=== PATIENT | female | born 1955 | race Caucasian/White ===

== ENCOUNTER 2017-12-05 11:03 | Observation (INO) | payer OTHER, SELFPAY ==
[2017-12-05 12:01] LABS: #Eosinphils 0.1 thou/uL (0.0-0.7); #Lymphocytes 2.1 thou/uL (1.20-3.40); #Monocytes 0.3 thou/uL (0.11-0.59); #Neutrophils 6.2 thou/uL (1.40-6.50); %Basophils 0.6 % (0.0-1.0); %Eosinophils 1.2 % (0.0-10.0); %Monocytes 3.9 % (0.0-10.0); %Neutrophils 70.4 % (42.0-75.0); Hemoglobin 14.6 g/dL (12.0-16.0); Mean Corpuscular HGB CONC 33.3 g/dL (32.0-36.0); Mean Corpuscular Hemoglobin 32.5 pg (27.0-31.0); Mean Corpuscular Volume 97.5 fL (78.0-98.0); Mean Platelet Volume 6.9 fL (7.4-10.4); Platelet Count 314 thou/uL (130-400); RBC Distribution Width 11.1 % (11.5-14.5); Red Blood Cell (RBC) Count 4.51 mill/uL (4.20-5.40); White Blood Cell (WBC) Count 8.7 thou/uL (4.8-10.8)
--- NOTE | 2017-12-05 12:18 | RAD ---
CHEST 1 VIEW: HISTORY: Chest pain. COMPARISON: None. FINDINGS: Lungs are slightly hyperinflated. No focal airspace consolidation, pneumothorax, or effusion. No ac [place] osseous abnormality. IMPRESSION: No acute intrathoracic abnormality. Mild obstructive pulmonary disease. POS: [facility]
[2017-12-05 12:27] LABS: ALT (SGPT) 11 U/L (8-55); AST (SGOT) 14 U/L (5-34); Albumin 4.7 g/dL (3.4-4.8); Alkaline Phosphatase 87 U/L (40-150); Anion Gap 13 mmol/L (10-20); BUN (Urea Nitrogen) 18 mg/dL (9.8-20.1); Bilirubin, Total 0.5 mg/dL (0.2-1.2); CK (CPK) 178 U/L (29-168); Calc. Creatinine Clearance 0 mL/min (70-130); Calcium 9.9 mg/dL (7.8-10.44); Carbon Dioxide 22 mmol/L (23-31); Chloride 108 mmol/L (98-107); Estimated GFR-MDRD 69; Globulin 3.5 g/dL (2.4-3.5); Glucose 103 mg/dL (80-115); Lipase 38 U/L (8-78); Protein, Total 8.2 g/dL (6.0-8.3); Sodium 139 mmol/L (136-145); Troponin I Less than 0.010 ng/mL (< 0.028)
--- NOTE | 2017-12-05 14:18 | PDOC.FPRHP ---
- History of Present Illness Chief Complaint: Upper chest tingling History of Present Illness: 62 yo F with PMH of HTN presents for tingling upper chest parasthesia for the past three weeks. Patient quit smoking cigars 4 weeks ago. She states the sensation is tingling or numbness across her collarbones and lower neck, with associate tingling and numbness bilaterally from mid-forearm down distally to her hands. Sensation lasts less than five minutes, usually occurs the in the morning. First episode happened while she was sleeping. It has been increasing in frequency, happening twice the first week, 4x and more "intense" the second week, and daily this week. She was worried today because it happened three times in a row. She has taken her blood pressure after the episodes and recorded a systolic pressure of 190, then 160, then 130. She is tired after the episodes. Associated with increased cough, denies SOB, diaphoresis, no nausea/ vomiting, no fever or chills, or night sweats. She has been more anxious lately worried about "" and "getting old." She reports she rarely has hot flashes but has had 3 hotflashes this week. She has >60 year pack year history of cigarettes, then smoked 5 cigars/day for 20 years. Family history of rectal, breast, mastoid, and lymphatic cancer in her mother (who at age 65). Father in 80s of CHF. In ED, her BP was 200/130, recheck after 10 minutes of rest was 145/87. CXR was normal. She received aspirin. - Allergies/Adverse Reactions Allergies Allergy/AdvReac Type Severity Reaction Status Date / Time pseudoephedrine Allergy Mild Hives Verified 12/05/17 15:18 - Home Medications Medication Instructions Recorded Confirmed Type Aspirin [Aspir-Low] 81 mg PO DAILY 12/05/17 12/05/17 History Lisinopril 20 mg PO BID 12/05/17 12/05/17 History - History PMHx: HTN PSHx: hysterectomy, pyloric stenosis as an infant FHx: Cancer =Mother: rectal cancer, breast cancer, "mastoid" cancer, of lymphatic cancer at age 65. Father- unknown cancer in 80s Cardiac: Father CHF, half brother with heart transplant Social: cigarettes 2 packs for 30 yrs, then cigars for 5 years, then pipe for 5 years, then 5 cigars/day for 15 years. - Review of Systems General: reports: fatigue. denies: fever/chills, weight/appetite/sleep changes , night sweats Eyes: denies: eye pain, vision changes ENT: denies: nasal congestion, rhinorrhea Respiratory: reports: cough. denies: congestion, shortness of breath, exercise intolerance Cardiovascular: reports: other (upper chest pain/parasthesia described as tingling/numbness). denies: palpitation Gastrointestinal: denies: nausea, vomiting, diarrhea, constipation, abdominal pain, GI bleeding Genitourinary: reports: polyuria (has been occurring for many years). denies: dysuria Skin: denies: rashes, itching Musculoskeletal: denies: stiffness, swelling Neurological: reports: numbness. denies: syncope, seizure, weakness Psychological: reports: anxiety. denies: depression - Vital signs BP:169/70, P 76, R 16 ; T97.9 ; O2 99% on RA Wt 66 kg - Physical Exam Constitutional: NAD, awake, alert and oriented, well developed HEENT: normocephalic and atraumatic, PERRLA, conjunctiva clear, grossly normal hearing, MMM Neck: supple, other (+LAD) Heart: RRR, normal S1/S2, no murmurs/rubs/gallops, pulses present, no edema Lungs: CTAB, no respiratory distress, good air movement, other (expiratory wheezing bilaterally in base of lungs) Abdomen: soft, non-tender, bowel sounds present, no masses/distention Musculoskeletal: normal structure, normal tone, ROM grossly normal Neurological: CN II-XII intact, normal sensation, DTRs 2+ Heme/Lymphatic: no purpura Psychiatric: normal mood and affect, good judgment and insight, intact recent and remote memory FMR H&P: Results - Labs Result Diagrams: 12/05/17 11:54 12/05/17 11:54 Lab results: WBC 8.7 thou/uL (4.8-10.8) 12/05/17 11:54 Hgb 14.6 g/dL (12.0-16.0) 12/05/17 11:54 Hct 43.9 % (36.0-47.0) 12/05/17 11:54 MCV 97.5 fL (78.0-98.0) 12/05/17 11:54 Plt Count 314 thou/uL (130-400) 12/05/17 11:54 Neutrophils % 70.4 % (42.0-75.0) 12/05/17 11:54 Sodium 139 mmol/L (136-145) 12/05/17 11:54 Potassium 4.0 mmol/L (3.5-5.1) 12/05/17 11:54 Chloride 108 mmol/L (98-107) H 12/05/17 11:54 Carbon Dioxide 22 mmol/L (23-31) L 12/05/17 11:54 BUN 18 mg/dL (9.8-20.1) 12/05/17 11:54 Creatinine 0.83 mg/dL (0.6-1.1) 12/05/17 11:54 Glucose 103 mg/dL (80-115) 12/05/17 11:54 Calcium 9.9 mg/dL (7.8-10.44) 12/05/17 11:54 Total Bilirubin 0.5 mg/dL (0.2-1.2) 12/05/17 11:54 AST 14 U/L (5-34) 12/05/17 11:54 ALT 11 U/L (8-55) 12/05/17 11:54 Alkaline Phosphatase 87 U/L (40-150) 12/05/17 11:54 Creatine Kinase 178 U/L (29-168) H 12/05/17 11:54 CK-MB (CK-2) 2.0 ng/mL (0-6.6) 12/05/17 11:54 Serum Total Protein 8.2 g/dL (6.0-8.3) 12/05/17 11:54 Albumin 4.7 g/dL (3.4-4.8) 12/05/17 11:54 Lipase 38 U/L (8-78) 12/05/17 11:54 - EKG Interpretation EKG: T waves flattened in the inferior leads FMR H&P: A/P - Problem List (1) Atypical chest pain Current Visit: Yes Status: Acute Code(s): R07.89 - OTHER CHEST PAIN - Plan 62 yo WF with PMH HTN presents with Atypical chest pain Atypical Chest pain, ACS rule out -Differential diagnoses include ACS vs hypertensive urgency vs COPD exacerbation vs Anxiety. Heart score of 3. At this point, it seems most likely that her parasthesias and elevation in BP are anxiety related. She does have some non-specific T-wave abnormalities (Twave depression in inferior leads). Initial cardiac enzymes are negative. Patient is very concerned about affording her ER bill and wants most cost efficient work up to be done. -Trending troponins with repeat EKG Q3 hours -Admit to tele-obs -CK 178, CKMB 2 -Pending Mag, TSH -Lipid panel in AM -Diet: Regular. NPO at midnight HTN -Patient has uncontrolled HTN. Continue home lisinopril 20 mg BID. Continue to monitor. Suspected COPD -Patient has >60 yr PPD hx -Wheezing in lungs -Satting 99% on RA, consider outpt work up Code status: full code FMR H&P: Upper Level - Pertinent history 62 yo WF with PMH HTN. Presents with 3 week history of chest tingling and both arms from mid-forearm down. States symptoms occur when she first wakes ups in the morning. Denies pain with exertion. States she usually drinks 12-18 oz of coffee in the morning. States she stopped smoking cigars 4 weeks ago but had smoked approx 5 cigars daily for >15 years and still smokes cigarettes occasionally. States she lives off social security and does not have insurance. Is concerned about cost of hospital stay and wants to keep testing to a minimum. - Pertinent findings Vitals: BP 145/87, pulse 66, Resp 12, Temp 98.3F, SpO2 97% on RA, WT 65 kg GEN: NAD, A&Ox4 CV: RRR no murmur Pulm: CTA-B Abd: NTND. Labs: CPK 178, CKMB 2.0, Trop <0.010 CXR: No acute processes, COPD changes EKG: Rate 83, NSR, non specific ST changes, QTc 439 - Plan Date/Time: 12/05/17 1414 I, Brannon Marino MD, have evaluated this patient and agree with findings/plan as outlined by learning and development intern resident. Pertinent changes/additions are listed here. 1. Atypical Chest Pain r/o ACS: dDx includes ACS vs HTN urgency vs COPD exacerbation vs anxiety. HEART score 3. Will trend CK-MB, troponins, and EKG x3. Start ASA and high intensity statin. PRN nitro available as needed. Will check TSH and mag level. check FLP to risk stratify. Will consider stress test pending results of cardiac enzymes and EKGs 2. HTN: resume home lisinopril. PRNs available 3. Tobacco abuse: encouraged continued cessation 4. Suspected COPD: will need outpatient evaluation. PRN duonebs 5. Diet: HH, NPO at midnight for possible stress test. 6. PPx: ambulation 7. CODE: FULL Dispo: Obs, Tele, <[address] Anand. Attending Addendum - Attending Addendum Date/Time: 12/05/17 [id number] I personally evaluated the patient and discussed the management with Dr. De Guzman. I agree with the History, Examination, Assessment and Plan documented above with any addition or exceptions noted below.
[2017-12-05] MEDS ORDERED: Acetaminophen 325 MG TAB PO PRN (15:46)
[2017-12-05] MEDS ORDERED: Ondansetron ODT 4 MG TAB SL PRN (15:46)
[2017-12-05] MEDS ORDERED: Ondansetron HCl/PF 4 MG/2 ML Vial IVP PRN (15:46)
[2017-12-05 16:05] VITALS: BMI 25.0
[2017-12-05 16:46] LABS: Troponin I 0.025 ng/mL (< 0.028)
[2017-12-05] MEDS: Lisinopril 20 MG TAB PO SCH (21:15)
[2017-12-06] MEDS: Nitroglycerin 0.4 MG TAB (25 Tab Bottle) SL PRN ×2 (05:17→07:32)
--- NOTE | 2017-12-06 05:58 | PDOC.FM ---
- Subjective Subjective: Pt had episode of chest pain last night, new EKG and trop were normal, systolic pressure in 180s. Pt states this morning that she has had 2 more episodes of CP and a hot flash in between episodes. Pain is more substernal, dull in nature. Associated symptom of bilateral numbness in wrists/hands. Patient states she did not sleep well last night. - Objective Vital Signs & Weight: Vital Signs (12 hours) Temp Pulse Resp BP Pulse Ox 12/06/17 05:22 90 137/77 12/06/17 05:11 73 187/90 H 96 12/06/17 03:25 98.2 F 77 18 144/76 H 96 12/05/17 19:38 97.6 F 76 28 H 121/72 94 L Weight Weight 65.969 kg I&O: 12/04/17 12/05/17 12/06/17 06:59 06:59 06:59 Intake Total 1020 Balance 1020 Result Diagrams: 12/05/17 11:54 12/05/17 11:54 <Arlene De Guzman - Last Filed: 12/06/17 09:06> - Objective Vital Signs & Weight: Vital Signs (12 hours) Temp Pulse Resp BP BP Pulse Ox 12/06/17 07:39 121/76 12/06/17 07:29 98.3 F 79 16 161/86 H 95 12/06/17 05:22 90 137/77 12/06/17 05:11 73 187/90 H 96 12/06/17 03:25 98.2 F 77 18 144/76 H 96 Weight Weight 65.969 kg I&O: 12/05/17 12/06/17 12/07/17 06:59 06:59 06:59 Intake Total 1020 Balance 1020 Result Diagrams: 12/05/17 11:54 12/05/17 11:54 <Kirill Bee - Last Filed: 12/06/17 09:30> Phys Exam - Physical Examination Constitutional: NAD HEENT: PERRLA, moist MMs Neck: no nodes, supple Respiratory: no wheezing, no rales, no rhonchi, clear to auscultation bilateral Cardiovascular: RRR, no significant murmur Gastrointestinal: soft, non-tender, no distention, positive bowel sounds Musculoskeletal: no edema, pulses present Neurological: moves all 4 limbs Psychiatric: normal affect, A&O x 3 <Arlene De Guzman - Last Filed: 12/06/17 09:06> Dx/Plan (1) Atypical chest pain Code(s): R07.89 - OTHER CHEST PAIN Status: Acute (2) HLD (hyperlipidemia) Code(s): E78.5 - HYPERLIPIDEMIA, UNSPECIFIED Status: Chronic (3) HTN (hypertension) Code(s): I10 - ESSENTIAL (PRIMARY) HYPERTENSION Status: Chronic - Plan Plan: 62 yo WF with PMH HTN presents with Atypical chest pain Atypical Chest pain, ACS rule out -Differential diagnoses include ACS vs hypertensive urgency vs COPD exacerbation vs Anxiety. -Heart score of 3. Her parasthesias and elevation in BP seem to be anxiety related. She does have some non-specific T-wave abnormalities (Twave depression in inferior leads). - Cardiac enzymes are negative. Trops all neg - EKGs no changes - Patient is very concerned about affording her ER bill and wants most cost efficient work up to be done. - Recommended stress test this morning, patient agrees to stress test - CK 178 - Mag, TSH: wnl HLD -Lipid panel showed Cholesterol- 228 Triglycerides- 131 LDL- 164 HDL- 38 Heart disease risk ratio: 6.0 -ASCVD risk 17%, recommend start of high intensity statin therapy HTN -Patient has uncontrolled HTN. -Continue home lisinopril 20 mg BID. Suspected COPD -Patient has >60 yr PPD hx -Wheezing in lungs yesterday -Satting 99% on RA, consider outpt work up -PRN deandre available <Arlene De Guzman - Last Filed: 12/06/17 09:06> Attending Addendum - Attending Addendum Date/Time: 12/06/17928 I personally evaluated the patient and discussed the management with Dr. De Guzman. I agree with the History, Examination, Assessment and Plan documented above with any addition or exceptions noted below. Patient here for CP rule out. No evidence of current ACS. Her BP log at home shows normal controlled BP, though it is labile here possibly due to anxiety. Will obtain stress testing this morning and anticipate normal with normal result for further mgmt in outpatient setting. <Kirill Bee - Last Filed: 12/06/17 09:30>
[2017-12-06 06:01] LABS: Troponin I Less than 0.010 ng/mL (< 0.028)
--- NOTE | 2017-12-06 06:33 | PDOC.EVN ---
Event Note - Event Note Event Note: Pt called nurse around 4-5am and reported return of chest tightness at 7/10 pain scale. Pt of similar quality to that of original pain. Pt walked halls with nurse and when pain did not resolve nurse arranged for repeat EKG and nitro. SBP was in 180s. Before nitro was given pain decreased to 4/10 spontaneously, nitro was given with continued improvement and SBP to 130s. repeat EKG shows no acute changes from last EKG with normal sinus rhythm and no evidence of ischemia. - will get stat troponin
[2017-12-06] MEDS: Lisinopril 20 MG TAB PO SCH (07:39)
[2017-12-06] MEDS ORDERED: Aspirin 81 mg Enteric Coated Tablet PO SCH (09:00)
[2017-12-06 14:10] VITALS: BP 142/84; TEMP 97.9
--- NOTE | 2017-12-06 14:35 | NM ---
MYOCARDIAL PERFUSION STUDY: 12/06/2017 HISTORY: Chest pain. RADIOPHARMACEUTICAL: Technetium 99m sestamibi IV, 29.8 millicuries, at stress. Technetium 99m sestamibi IV, 9.4 millicuries, at rest. TECHNIQUE: This examination was performed as an exercise stress myocardial perfusion study, following the routin e Marco protocol. Resting heart rate is 75 beats per minute, with a maximal heart rate of 141 beats per minute. This represents 89% of the maximal predicted effective heart rate. FINDINGS: There is normal uptake and distribution of radiotracer seen throughout the left ventricular myocardiu m on both the stress and resting acquisitions. No significant reversible defect is identified. Isaiah titative analysis also shows no significant reversible defect. Gated images show minimal hypokinesis of the septum. There is normal ventricular wall thickening. The calculated left ventricular ejecti on fraction is 68%. IMPRESSION: 1. Normal myocardial perfusion study without evidence of a reversible defect seen to suggest ischemi a. 2. Normal left ventricular ejection fraction of 68%. POS: [facility]
[2017-12-06] MEDS ORDERED: Atorvastatin Calcium 40 MG TAB PO SCH (21:00)
--- NOTE | 2017-12-07 21:05 | DIS-2 ---
DATE OF ADMISSION: 12/05/2017 DATE OF DISCHARGE: 12/06/2017 RESIDENT: Arlene De Guzman M.D. ADMITTING ATTENDING: Kirill Bee M.D. DISCHARGE ATTENDING: Kirill Bee M.D. CONSULTATIONS: None. PROCEDURES: 1. Chest x-ray on 12/05/2017. Impression: No acute intrathoracic abnormality. Mild obstructive pulmonary disease. 2. Stress test nuclear medicine on 12/06/2017. Impression: Normal myocardial perfusion study without evidence of reversible defect seen to suggest ischemia. Normal left ventricular ejection fraction of 68%. PRIMARY DIAGNOSIS: Anxiety. SECONDARY DIAGNOSES: 1. Hyperlipidemia. 2. Hypertension. 3. Suspected chronic obstructive pulmonary disease. DISCHARGE MEDICATIONS: 1. Aspirin 81 mg p.o. daily. 2. Atorvastatin 40 mg p.o. at bedtime. 3. Lisinopril 20 mg p.o. b.i.d. DISCONTINUED MEDICATIONS: None. HISTORY OF PRESENT ILLNESS AND HOSPITAL COURSE: A 62-year-old female with past medical history of hypertension who presents for tingling of her chest, paresthesias for the past 3 weeks. The patient quit smoking cigars 4 weeks ago. She states the sensation is tingling or numbness across the collarbone and lower neck with associated tingling and numbness bilaterally from her mid forearm down distally through her hands. This sensation lasted less than 5 minutes, usually occurs in the morning. Her first episode happened while she was sleeping. It has been increasing in frequency, happening twice in the first week for times and more intensely in the second week, and every day this week. She was worried today because it happened 3 times in a row. She has taken her blood pressure after the episodes recorded a systolic pressure of 190 , which then decreased to 160 and then to 130. She feels tired after the episode, she associates episode with increased cough. She denies shortness of breath, diaphoresis, nausea or vomiting, fever or chills or night sweats. She has been more anxious lately, worried about and getting old. She reports she really has hot flashes, but has had three hot flashes this week. She was greater than 83-etru-tmmv history of smoking cigarettes and then 5 year history of smoking pipe and then 15-year history of smoking cigars. She has family history of rectal, breast, mastoid, and lymphatic cancer and her mother who at age 56. Her father in his 80s of systolic heart failure. In the ED, her blood pressure was 200/130, it was rechecked after 10 minutes of rest and was 145/87. Her chest x-ray was normal and she received aspirin. For her atypical chest pain, an ACS rule out was done. She had a heart score of 3. Her paresthesias and elevation in blood pressure seemed to be anxiety related. She did have some nonspecific T-wave abnormalities including T-wave depressions in the inferior leads. Her cardiac enzymes were all negative. All of her subsequent EKGs showed no changes. The patient was very worried about affording her bills from her hospital stay and wanted most cost efficient workup to be done. She agreed to do a stress test the next morning, which was normal. It showed normal ejection fraction of 68%. Her mag and TSH were within normal limits. Hyperlipidemia. Her lipid panel showed cholesterol of 228, triglycerides 131, LDL 164, HDL 38. Due to her high ASCVD risk, we started a high intensity statin. The patient had what appeared to be uncontrolled hypertension. Her home list of her blood pressures showed fairly normal blood pressures. The patient was continued on lisinopril 20 mg. Suspected chronic obstructive pulmonary disease. The patient has a greater than 60-year pack history. She had wheezing in her lungs in her hospital stay. However, her saturations were 99% on room air. She was given p.r.n. DuoNebs. Outpatient PFTs are recommended for work up of COPD. DISPOSITION: Stable. DISCHARGE INSTRUCTIONS: 1. Location: Home. 2. Diet: Heart healthy. 3. Activity: As tolerated. 4. Followup: Follow up with PCP within the next 3 days. YEIMI
--- NOTE | 2017-12-09 10:07 | EKG ---
Test Reason : Blood Pressure : / mmHG Vent. Rate : 072 BPM Atrial Rate : 072 BPM P-R Int : 134 ms QRS Dur : 086 ms QT Int : 400 ms P-R-T Axes : 068 062 050 degrees QTc Int : 438 ms Normal sinus rhythm Normal ECG No previous ECGs available Confirmed by DR. Akanksha PITTS ([id number]) on 12/09/2017 10:07:12 AM Referred By: ERIN Confirmed By:DR. Akanksha PITTS
--- NOTE | 2017-12-09 10:08 | EKG ---
Test Reason : Blood Pressure : / mmHG Vent. Rate : 072 BPM Atrial Rate : 072 BPM P-R Int : 120 ms QRS Dur : 082 ms QT Int : 398 ms P-R-T Axes : 075 062 052 degrees QTc Int : 435 ms Normal sinus rhythm Normal ECG When compared with ECG of 06-DEC-2017 05:20, (Unconfirmed) No significant change was found Confirmed by DR. Akanksha PITTS ([id number]) on 12/09/2017 10:08:03 AM Referred By: VERONICA jay Confirmed By:DR. Akanksha PITTS
--- NOTE | 2017-12-09 10:08 | EKG ---
Test Reason : Blood Pressure : / mmHG Vent. Rate : 067 BPM Atrial Rate : 067 BPM P-R Int : 124 ms QRS Dur : 086 ms QT Int : 416 ms P-R-T Axes : 073 071 051 degrees QTc Int : 439 ms Normal sinus rhythm Normal ECG When compared with ECG of 05-DEC-2017 20:21, (Unconfirmed) No significant change was found Confirmed by DR. Akanksha PITTS () on 12/09/2017 10:07:32 AM Referred By: KATHY jay Confirmed By:DR. Akanksha PITTS
--- NOTE | 2017-12-13 09:28 | STRESS ---
Acquisition Time: 2017-12-06 11:47:16 Total Exercise Time: 00:06:03 Test Indications: CHEST PAIN Medications: Protocol: BALAJI Max HR: 141 BPM 89% of Pred: 157 BPM Max BP: 138/070 mmHG Max Work Load: 7.0 METS THE PATIENT EXERCISED FOR 6:00 ON A BALAJI PROTOCOL. PEAK HEART RATE= 139 BPM AND TARGET HEART RATE= 133 BPM. SHE DID NOT DEVELOP CHEST PAIN. THERE WAS 1-1.[address] DEPRESSION WITH STRESS. BORDERLINE EXERCISE TREADMILL TEST. AWAIT NUCLEAR IMAGES FOR DEFINITIVE DIAGNOSIS. Confirmed by MARGIE BOUCHER ([id number]), tape editor REGIS MORA ([id number]) on 12/13/2017 9:28:17 AM Referred By: MD Jeffrey MARTIN Confirmed By:MARGIE BOUCHER
== END 2017-12-06 14:47 | disposition home or self-care (01) ==
LOC: ERS 11:03 → 2SW 15:41
PROVIDERS: ADMIT Student in an Organized Health Care Education/Training Program; ATTEND Student in an Organized Health Care Education/Training Program
DX: R07.89 Other chest pain (principal); I10 Essential (primary) hypertension; E78.5 Hyperlipidemia, unspecified; Z87.891 Personal history of nicotine dependence; Z79.82 Long term (current) use of aspirin; Z79.899 Other long term (current) drug therapy; Z88.8 Allergy status to other drugs, medicaments and biological substances
CPT/HCPCS: 36415; 71045; 78452; 80053; 80061; 82553; 83690; 83735; 84443; 84484; 85025; 90471; 90732; 93005; 93010; 93017; 94760; A9500; G0009; G0378

== ENCOUNTER 2020-04-25 11:09 | Outpatient (CLI) | payer MEDICARE ==
--- NOTE | 2020-04-25 13:28 | MMO ---
Bilateral MAMMO Bilat Screen [facility]. CLINICAL HISTORY: Patient is 64 years old and is seen for screening. The patient has no family history of breast cancer. The patient has no personal history of cancer. VIEWS: The views performed were: bilateral craniocaudal with tomosynthesis and bilateral mediolateral oblique with tomosynthesis. This study has been interpreted with the assistance of computer-aided detection. MAMMOGRAM FINDINGS: There are scattered fibroglandular densities. Benign calcifications are noted bilaterally. Bilateral multinodularity is seen. There are no suspicious masses, suspicious calcifications, or new areas of architectural distortion. IMPRESSION: THERE IS NO MAMMOGRAPHIC EVIDENCE OF MALIGNANCY. A ROUTINE FOLLOW-UP MAMMOGRAM IN 1 YEAR IS RECOMMENDED. THE RESULTS OF THIS EXAM WERE SENT TO THE PATIENT. ACR BI-RADS Category 2 - Benign finding MAMMOGRAPHY NOTE: 1. A negative mammogram report should not delay a biopsy if a dominant of clinically suspicious mass is present. 2. Approximately 10% to 15% of breast cancers are not detected by mammography. 3. Adenosis and dense breasts may obscure an underlying neoplasm. Reported by: ADAN PANIAGUA MD Electonically Signed: [id number]
== END 2020-04-25 11:10 | disposition home or self-care (01) ==
LOC: BICMAMMO 11:09
PROVIDERS: ATTEND Nurse Practitioner Family
DX: Z12.31 Encounter for screening mammogram for malignant neoplasm of breast (principal)
CPT/HCPCS: 77063; 77067

== ENCOUNTER 2024-01-10 14:44 | Outpatient (CLI) | payer OTHER | END 2024-01-10 14:45 | disposition home or self-care (01) | LOC: BICRAD 14:44 | DX: M54.50 Low back pain, unspecified (principal); M47.816 Spondylosis without myelopathy or radiculopathy, lumbar region; M46.1 Sacroiliitis, not elsewhere classified | CPT/HCPCS: 72110; 72202 ==

== ENCOUNTER 2024-02-26 10:28 | Outpatient (CLI) | payer OTHER, MEDICAID | END 2024-02-26 10:29 | disposition home or self-care (01) | LOC: BICMAMMO 10:28 | DX: Z12.31 Encounter for screening mammogram for malignant neoplasm of breast (principal); M81.0 Age-related osteoporosis without current pathological fracture; M85.851 Other specified disorders of bone density and structure, right thigh; M85.852 Other specified disorders of bone density and structure, left thigh; Z80.3 Family history of malignant neoplasm of breast | CPT/HCPCS: 77063; 77067; 77080 ==